=== PATIENT | female | born 1995 | race African-American/Black ===

== ENCOUNTER 2017-02-07 16:39 | Emergency (ER) | payer OTHER ==
[~2017-02-07] VITALS: Ht 157.5 cm; Wt 88.5 kg
[2017-02-07 17:30] LABS: BILIRUBIN,URINE NEGATIVE (NEG); GLUCOSE,URINE NEGATIVE (NEG); NITRITE,URINE NEGATIVE (NEG); PH,URINE 7.5; PROTEIN,URINE NEGATIVE (NEG-TRACE); UROBILINOGEN,URINE 0.2 mg/dL (0.2 mg/dL)
[2017-02-07 17:42] LABS: BACTERIA,URINE FEW /HPF (0-FEW); RBC,URINE 0 /HPF (0-2); SQUAMOUS EPITHELIAL CELL,UR MOD /LPF; WBC,URINE OCC /HPF (0-4)
--- NOTE | 2017-02-07 18:35 | PHYS DOC ---
Past Medical History Past Medical History: No Pertinent History Past Surgical History: Other Additional Past Surgical Histo: I&D of axilla abscess Alcohol Use: None Drug Use: Marijuana Adult General Chief Complaint Chief Complaint: ABDOMINAL PAIN HPI HPI 22-year-old female presenting to the emergency department today with abdominal pain in the epigastrium for about a week. It is nonradiating intermittent and without alleviating factors. The patient requested Pap smear. I explained to the patient her Pap smear will need to be done through her management assistant. She describes the pain as a moderate pressure that is nonradiating intermittent and without alleviating factors. She denies nausea. Review of systems is negative for vomiting diarrhea constipation fevers chills. She denies dysuria polyuria. She denies increased vaginal discharge or foul- smelling discharge or recent exposure to STDs. All other review of systems is negative unless otherwise noted in history of present illness. ED course: 22-year-old female with epigastric abdominal pain. Normal vital signs. Physical examination shows a normal physical exam.Soft nontender abdomen without rebound tenderness or guarding present. Negative McBurneys point. Negative Thakkar sign. No ecchymosis present. Vaginal exam performed in the presence of a female nurse shows mild menard discharge without any evidence of cervicitis. No cervical motion tenderness or adnexal masses. The patient received intramuscular Rocephin and oral azithromycin for possible gonorrhea and chlamydia. Swabs sent. The patient was then discharged home in stable condition to follow up with their primary care physician over the next 2-3 days. They were to return if their symptoms worsened or if they were concerned for any reason. [id number] discharge instructions and return precautions were given. Patient's questions were answered to their satisfaction. Patient is comfortable with plan. Review of Systems Review of Systems SEE ABOVE. Current Medications Current Medications Current Medications Medications (Trade) Dose Ordered Sig/Janelle Start Time Stop Time Status Last Admin Dose Admin Azithromycin (Zithromax) 1,000 mg 1X ONCE 02/07/17 19:15 02/07/17 19:25 DC 02/07/17 18:55 1,000 MG Ceftriaxone Sodium (Rocephin Im) 250 mg 1X ONCE 02/07/17 19:15 02/07/17 19:25 DC 02/07/17 18:55 250 MG Allergies Allergies Allergies Coded Allergies Type Severity Reaction Last Updated Verified No Known Drug Allergies 12/29/14 No Physical Exam Physical Exam SEE ABOVE Constitutional: Well developed, well nourished, no acute distress, non-toxic appearance. [] HENT: Normocephalic, atraumatic, bilateral external ears normal, oropharynx moist, no oral exudates, nose normal. [] Eyes: PERRLA, EOMI, conjunctiva normal, no discharge. [] Neck: Normal range of motion, no tenderness, supple, no stridor. [] Cardiovascular:Heart rate regular rhythm, no murmur [] Lungs & Thorax: Bilateral breath sounds clear to auscultation [] Abdomen: Bowel sounds normal, soft, no tenderness, no masses, no pulsatile masses. [] Skin: Warm, dry, no erythema, no rash. [] Back: No tenderness, no CVA tenderness. [] Extremities: No tenderness, no cyanosis, no clubbing, ROM intact, no edema. [] Neurologic: Alert and oriented X 3, normal motor function, normal sensory function, no focal deficits noted. [] Psychologic: Affect normal, judgement normal, mood normal. [] Current Patient Data Vital Signs Vital Signs Date Time Temp Pulse Resp B/P (MAP) Pulse Ox O2 Delivery O2 Flow Rate FiO2 02/07/17 19:15 80 18 106/63 (77) 97 Room Air 02/07/17 17:10 97.9 97.9 Lab Values Laboratory Tests Test 02/07/17 16:14 02/07/17 17:02 POC Urine HCG, Qualitative Hcg negative (Negative) Urine Collection Type Unknown Urine Color Yellow Urine Clarity Clear Urine pH 7.5 Urine Specific [place] <=1.005 Urine Protein Negative mg/dL (NEG-TRACE) Urine Glucose (UA) Negative mg/dL (NEG) Urine Ketones (Stick) Negative mg/dL (NEG) Urine Blood Moderate (NEG) Urine Nitrite Negative (NEG) Urine Bilirubin Negative (NEG) Urine Urobilinogen Dipstick 0.2 mg/dL (0.2 mg/dL) Urine Leukocyte Esterase Small (NEG) Urine RBC 0 /HPF (0-2) Urine WBC Occ /HPF (0-4) Urine Squamous Epithelial Cells Mod /LPF Urine Bacteria Few /HPF (0-FEW) Microbiology 02/07/17 Wet Prep - Final, Complete 02/07/17 Urine Culture - Preliminary, Resulted 02/07/17 Urine Culture Result 1 (CRISTIAN) - Preliminary, Resulted EKG EKG [] Radiology/Procedures Radiology/Procedures [] Course & Med Decision Making Course & Med Decision Making Pertinent Labs and Imaging studies reviewed. (See chart for details) [] Dragon Disclaimer Dragon Disclaimer This electronic medical record was generated, in whole or in part, using a voice recognition dictation system. Departure Departure Impression: Primary Impression: Abdominal pain Disposition: HOME, SELF-CARE Condition: STABLE Referrals: KIMBERLY REYES (PCP) Patient Instructions: Abdominal Pain, Women Additional Instructions: Thank you for allowing us to participate in your care today. Followup with your primary care physician in 3 days if your symptoms do not improve. Call your Primary Doctor tomorrow and inform them of your visit today. If you do not have a primary care provider you can ask for a list of our primary care providers. Return to the emergency department you have any new or concerning findings. This should be evaluated by the primary care physician and any necessary consulting services for continued management within a few days after discharge. Return to emergency room if you have any new or concerning symptoms including but not limited to fever, chills, nausea, vomiting, intractable pain, any new rashes, chest pain, shortness of air, uncontrolled bleeding, difficulty breathing, and/or vision loss. KVNG MORALES MD Feb 07, 2017 18:35
[2017-02-07 19:15] VITALS: BP 106/63
[2017-02-07] MEDS ORDERED: cefTRIAXone IM 250 MG VIAL IM ONE (19:15)
[2017-02-07] MEDS ORDERED: AZITHROMYCIN 250 MG TABLET. PO ONE (19:15)
== END 2017-02-07 19:20 | disposition home or self-care (01) ==
LOC: ER 16:39
DX: R10.13 Epigastric pain (principal); F12.10 Cannabis abuse, uncomplicated
CPT/HCPCS: 81001; 81025; 87086; 87491; 87591; 96372; 99284; J0696; Q0111; Q0144

== ENCOUNTER 2017-06-22 20:10 | Emergency (ER) | payer OTHER ==
[~2017-06-22] VITALS: Ht 160 cm; Wt 81.6 kg
[2017-06-22 20:25] VITALS: BP 125/60
[2017-06-22 20:41] LABS: BILIRUBIN,URINE NEGATIVE (NEG); GLUCOSE,URINE NEGATIVE (NEG); NITRITE,URINE NEGATIVE (NEG); PROTEIN,URINE NEGATIVE (NEG-TRACE); UROBILINOGEN,URINE 0.2 mg/dL (0.2 mg/dL)
[2017-06-22 20:48] LABS: BACTERIA,URINE MOD /HPF (0-FEW); RBC,URINE 20-40 /HPF (0-2); SQUAMOUS EPITHELIAL CELL,UR MOD /LPF; WBC,URINE TNTC /HPF (0-4)
--- NOTE | 2017-06-22 20:48 | PHYS DOC ---
Past Medical History Past Medical History: No Pertinent History Past Surgical History: No Surgical History Additional Past Surgical Histo: I&D of axilla abscess Alcohol Use: None Drug Use: None Adult General Chief Complaint Chief Complaint: BLOOD IN URINE HPI HPI Patient is a 22 year old female in [place] female with urinary frequency urgency and gross blood present and urine. Symptoms began 4 days ago. No fever, chills, nausea, vomiting, flank pain. Last menstrual period was 2 weeks ago. Patient is not currently on control denies possibility of .[] Review of Systems Review of Systems Review symptoms as per history of present illness. All other review symptoms are negative. All other systems were reviewed and found to be within normal limits, except as documented in this note. Allergies Allergies Allergies Coded Allergies Type Severity Reaction Last Updated Verified No Known Drug Allergies 12/29/14 No Physical Exam Physical Exam Constitutional: Well developed, well nourished, no acute distress, non-toxic appearance. [] HENT: Normocephalic, atraumatic, bilateral external ears normal, oropharynx moist, no oral exudates, nose normal. [] Eyes: PERRLA, EOMI, conjunctiva normal, no discharge. [] Neck: Normal range of motion, no tenderness, supple, no stridor. [] Cardiovascular:Heart rate regular rhythm, no murmur [] Lungs & Thorax: Bilateral breath sounds clear to auscultation [] Abdomen: Bowel sounds normal, soft, suprapubic tenderness. [] Skin: Warm, dry, no erythema, no rash. [] Back: No CVA tenderness. [] Extremities: No tenderness, no cyanosis, no clubbing, ROM intact, no edema. [] Current Patient Data Vital Signs Vital Signs Date Time Temp Pulse Resp B/P (MAP) Pulse Ox O2 Delivery O2 Flow Rate FiO2 06/22/17 20:25 97.8 97 16 97 Room Air 97.8 Lab Values Laboratory Tests Test 06/22/17 20:12 06/22/17 20:34 Urine Collection Type Unknown Urine Color Yellow Urine Clarity Clear Urine pH 6.0 Urine Specific [place] 1.025 Urine Protein Negative mg/dL (NEG-TRACE) Urine Glucose (UA) Negative mg/dL (NEG) Urine Ketones (Stick) Negative mg/dL (NEG) Urine Blood Large (NEG) Urine Nitrite Negative (NEG) Urine Bilirubin Negative (NEG) Urine Urobilinogen Dipstick 0.2 mg/dL (0.2 mg/dL) Urine Leukocyte Esterase Large (NEG) Urine RBC 20-40 /HPF (0-2) Urine WBC Tntc /HPF (0-4) Urine Squamous Epithelial Cells Mod /LPF Urine Bacteria Mod /HPF (0-FEW) Urine Mucus Mod /LPF POC Urine HCG, Qualitative Hcg negative (Negative) EKG EKG [] Radiology/Procedures Radiology/Procedures [] Course & Med Decision Making Course & Med Decision Making Pertinent Labs and Imaging studies reviewed. (See chart for details) [Medic urinary tract infection without secondary findings.] Dragon Disclaimer Dragon Disclaimer This electronic medical record was generated, in whole or in part, using a voice recognition dictation system. Departure Departure Impression: Primary Impression: Acute cystitis Disposition: 01 HOME, SELF-CARE Condition: GOOD Referrals: KIMBERLY REYES (PCP) FELICIANO GUIDO DO Jun 22, 2017 20:48
== END 2017-06-22 21:07 | disposition home or self-care (01) ==
LOC: ER 20:10
DX: N30.01 Acute cystitis with hematuria (principal)
CPT/HCPCS: 81001; 81025; 99283

== ENCOUNTER 2017-07-26 21:36 | Emergency (ER) | payer OTHER ==
[2017-07-26 23:28] LABS: BILIRUBIN,URINE NEGATIVE (NEG); CLARITY,URINE CLEAR; COLOR,URINE YELLOW; GLUCOSE,URINE NEGATIVE (NEG); NITRITE,URINE NEGATIVE (NEG); PROTEIN,URINE NEGATIVE (NEG-TRACE)
[2017-07-26 23:28] LABS: URINE HCG POC HCG NEGATIVE (Negative)
[2017-07-26 23:32] LABS: BACTERIA,URINE 0 /HPF (0-FEW); RBC,URINE OCC /HPF (0-2); SQUAMOUS EPITHELIAL CELL,UR FEW /LPF; WBC,URINE 20-40 /HPF (0-4)
[2017-07-27] MEDS: ONDANSETRON ODT 4 MG TAB.RAPDIS. PO
[2017-07-27] MEDS: cefTRIAXone IM 250 MG VIAL IM
[2017-07-27] MEDS: PHENAZOPYRIDINE 200 MG TABLET. PO
[2017-07-28 19:16] LABS: CHLAMYDIA PROBE Positive (Negative); GC PROBE Positive (Negative)
== END 2017-07-27 00:13 | disposition home or self-care (01) ==
LOC: ER 07-27 00:13
DX: N72 Inflammatory disease of cervix uteri (principal); N30.00 Acute cystitis without hematuria
CPT/HCPCS: 81001; 81025; 87086; 87491; 87591; 96372; 99284-25; J0696; Q0111; Q0162